=== PATIENT | male | born 1970 | race African-American/Black ===

== ENCOUNTER 2017-06-23 20:49 | Emergency (ER) | payer OTHER ==
[~2017-06-23] VITALS: Ht 182.9 cm; Wt 81.7 kg
[2017-06-23] MEDS ORDERED: NORCO 5-325 TA1 EACH PO (21:16)
[2017-06-23] MEDS ORDERED: PREDNISONE50 MG PO (21:16)
== END 2017-06-23 21:43 | disposition home or self-care (01) ==
LOC: ER 20:49
DX: M72.2 Plantar fascial fibromatosis (principal); M79.671 Pain in right foot; F17.210 Nicotine dependence, cigarettes, uncomplicated

== ENCOUNTER 2017-08-11 12:50 | Emergency (ER) | payer OTHER ==
[~2017-08-11] VITALS: Ht 182.9 cm; Wt 82.1 kg
[~2017-08-11 12:50] MED LIST: NORCO 5-325 TA1 EACH PO; PREDNISONE50 MG PO
[2017-08-11] MEDS ORDERED: INDOMETHACIN 2525 MG PO (13:51)
== END 2017-08-11 14:13 | disposition home or self-care (01) ==
LOC: ER 12:50
DX: M10.9 Gout, unspecified (principal); F17.210 Nicotine dependence, cigarettes, uncomplicated; F10.99 Alcohol use, unspecified with unspecified alcohol-induced disorder